=== PATIENT | female | born 1990 | race Caucasian/White ===

== ENCOUNTER 2018-07-19 08:02 | Day surgery (SDC) | payer OTHER ==
[~2018-07-19] VITALS: Ht 203.2 cm; Wt 106.1 kg
[~2018-07-19 08:02] MED LIST: BUPIVACAINE-EPI 0.5%-1:200000 50 ML VIAL. ONE; HYDROmorphone 2 MG/ML VIAL IV PRN; IOHEXOL 300 MG/ML 100ML VIAL. ONE; IV RINGERS,LACTATED 1000ML 1,000 ML IV SCH; LIDOCAINE 1% PF 2 ML VIAL. ID PRN; MORPHINE SULFATE 2 MG/ML VIAL. IV PRN; ONDANSETRON PF 4 MG/2 ML VIAL. IV PRN; PROCHLORPERAZINE 10 MG/2 ML VIAL. IV PRN; SURGICEL HEMOSTAT 4X8 EACH. ONE; fentaNYL PF VIAL 100 MCG/2 ML VIAL IV PRN
[2018-07-19] MEDS ORDERED: ONDANSETRON PF 4 MG/2 ML VIAL. ONE (08:28)
[2018-07-19] MEDS ORDERED: fentaNYL PF VIAL 100 MCG/2 ML VIAL ONE ×3 (08:28→10:42)
[2018-07-19] MEDS ORDERED: MIDAZOLAM HCL/PF 2 MG/2 ML VIAL. ONE (08:28)
[2018-07-19] MEDS ORDERED: PROPOFOL 20 ML IV ONE (08:28)
[2018-07-19] MEDS ORDERED: ROCURONIUM 50 MG/5 ML VIAL. ONE (08:28)
[2018-07-19] MEDS ORDERED: DEXAMETHASONE SOD PHOS 20 MG/5 ML VIAL. ONE (08:28)
[2018-07-19 08:50] LABS: U PREG PATIENT NEGATIVE (NEG)
[2018-07-19 08:51] LABS: BASO % 1 % (0-3); EOS # 0.1 x10^3/uL (0.0-0.7); EOS % 1 % (0-3); HEMATOCRIT 44.3 % (36.0-47.0); LYMPH # 1.3 x10^3/uL (1.0-4.8); LYMPH % 21 % (24-48); MEAN CORPUSCULAR HEMOGLOBIN 30 pg (25-35); MEAN CORPUSCULAR HGB CONC 34 g/dL (31-37); MEAN CORPUSCULAR VOLUME 88 fL (79-100); MONO # 0.5 x10^3/uL (0.0-1.1); MONO % 8 % (0-9); NEUT # 4.2 x10^3uL (1.8-7.7); NEUT % 70 % (31-73); PLATELET COUNT 261 x10^3/uL (140-400); RED BLOOD COUNT 5.03 x10^6/uL (3.50-5.40); RED CELL DISTRIBUTION WIDTH 12.9 % (11.5-14.5); WHITE BLOOD COUNT 6.1 x10^3/uL (4.0-11.0)
[2018-07-19 09:03] LABS: CALCIUM 8.8 mg/dL (8.5-10.1); CREATININE 1.1 mg/dL (0.6-1.0); GFR 58.7; POTASSIUM 3.7 mmol/L (3.5-5.1)
[2018-07-19 09:10] LABS: TOTAL BILIRUBIN 0.6 mg/dL (0.2-1.0)
[2018-07-19] MEDS ORDERED: GLYCOPYRROLATE 1 MG/5 ML VIAL. ONE (09:53)
[2018-07-19] MEDS ORDERED: NEOSTIGMINE METHYLSULFATE 5 MG/5 ML SYRINGE. ONE (09:53)
[2018-07-19] MEDS ORDERED: KETOROLAC 30 MG/ML INJ FOR OR. INJ ONE (09:53)
[2018-07-19] MEDS ORDERED: FAMOTIDINE 20 MG/2 ML VIAL ONE (09:53)
[2018-07-19] MEDS ORDERED: DESFLURANE 61 TO 120 MINUTES IH ONE (09:55)
--- NOTE | 2018-07-19 10:40 | DISCH ---
DISCHARGE INSTRUCTIONS Condition on Discharge Condition on Discharge: Stable Activity After Discharge Activity Instructions for Disc: Resume previous activity, Activity as tolerated Lifting Instructions after Dis: No heavy lifting Driving Instructions after Dis: Do not drive (3-4 days) Diet after Discharge Diet after Discharge: Regular Wound Incision Care Wound/Incision Care: Ice to area for comfort Other wound/incision instructi: March showthursday Follow-Up Follow Up With: Shailesh next week ELZBIETA VARMA MD Jul 19, 2018 10:40
--- NOTE | 2018-07-19 10:50 | RAD ---
C-arm fluoroscopy with fluoroscopic spot views Clinical indications: Cholecystectomy. Intraoperative cholangiogram Total fluoroscopic time: 17 seconds. Total postoperative spot images: 3. IMPRESSION: Fluoroscopic spot images demonstrate opacification of a nondilated extrahepatic biliary tree with free flow of contrast material from the common bile duct into the duodenum. No stricture or stone is evident. Electronically signed by: Will George MD (07/19/2018 10:47 AM) [facility]
--- NOTE | 2018-07-19 10:51 | OP ---
DATE OF SURGERY: 07/19/2018 PREOPERATIVE DIAGNOSIS: Biliary dyskinesia. POSTOPERATIVE DIAGNOSIS: Biliary dyskinesia. PROCEDURE: Laparoscopic cholecystectomy with cholangiogram. SURGEON: Phillip Varma MD. SEROLOGY TEACHER: LEXIS Whitehead. ANESTHESIA: General endotracheal. ESTIMATED BLOOD LOSS: 10. IV FLUIDS: 1 liter. INDICATIONS: The patient is an obese 28-year-old female with postprandial nausea, pain and diarrhea. Brought for cholecystectomy. OPERATIVE FINDINGS: The liver was generous, smooth and sharp. The gallbladder was supple. Cholangiograms were normal. Visual inspection of the remainder of the abdomen failed to reveal obvious abnormalities. DESCRIPTION OF PROCEDURE: The patient was brought to the operating suite, given a general endotracheal anesthetic, and the abdomen prepped and draped in usual sterile fashion. An infraumbilical incision was infiltrated with local anesthetic, incised and a 5 mm Visiport used to safely gain access into the abdominal cavity, taking care to avoid injury to abdominal contents. Pneumoperitoneum established. Camera inserted. Inspection carried out with results as noted above. With the table in reverse Trendelenburg rolled to the left, the epigastric and midclavicular ports were placed under direct vision. The lateral port location was used for an "alligator" grasper. Gallbladder retracted superolaterally and the cystic duct and cystic artery exposed. Duct was clipped on the gallbladder side. Cholangiograms were made. These were normal. In light of this, the catheter was removed. The cystic duct was clipped x 3 and divided, taking care to avoid injury or compromise the common duct. An anterior and posterior branch of the cystic artery were clipped and divided and the gallbladder freed from the bed with cautery dissection and placed in an EndoCatch bag. Good hemostasis was present in the fossa, and there was no evidence of bile leak. Table returned to level. Gallbladder delivered through the epigastric incision. Epigastric incision closed with interrupted 0 Vicryl suture. Intra-abdominal pressure decreased to 6 cm of water. No bleeding from the epigastric closure or from the midclavicular port site after its removal or from the location of the alligator grasper. Abdomen decompressed, camera slowly removed, no bleeding seen. Skin incisions closed with subcuticular 4-0 Monocryl. Steri-Strips and sterile dressings applied. The patient awakened from her anesthetic and taken to the recovery room in satisfactory condition. PHILLIP VARMA MD DR: PAIGE/tasia JOB#: [id number] / [id number]
[2018-07-19] MEDS: fentaNYL PF VIAL 100 MCG/2 ML VIAL IV PRN ×2 (10:54→11:04)
[2018-07-19] MEDS ORDERED: OXYC-323 PO (11:27)
[2018-07-19] MEDS ORDERED: SENN1TAB70 PO (11:29)
[2018-07-19] MEDS ORDERED: oxyCODONE/APAP 5/325 1 TAB TABLET PO ONE (11:30)
[2018-07-19 12:45] VITALS: BP 110/64
--- NOTE | 2018-07-21 11:10 | PATHOLOGY ---
[facility] Accession Number: [id number] . 01 Material submitted: . GALLBLADDER . 01 Clinical history: . Biliary dyskinesia . 02 Diagnosis: Gallbladder, laparoscopic cholecystectomy: - Cholesterolosis. - Chronic cholecystitis. [facility]/07/20/2018 . 02 Comment: There are no calculi identified within the gallbladder lumen or specimen container. There is no evidence of malignancy. . (JPM:mml; 07/20/18) . 02 Electronically signed: . Angel Remy MD, Pathologist NPI- [id number] . 01 Gross description: . The specimen is received in formalin, labeled "Connel, Francesca, gallbladder" and consists of an intact green-irvin and shiny gallbladder measuring 9.2 x 3.5 x 2.4 cm. Upon opening, the gallbladder is filled with viscous green bile and no calculi. The mucosa is pink-green with yellow highlights and a wall thickness average of 0.1 cm. No masses or lesions are identified. [employer]er [employer]er sections are submitted in A1. (SD; 07/19/2018) SYU/SYU . 02 Pathologist provided ICD-10: K81.1, K82.4 . 02 CPT . 327072 Specimen Comment: A courtesy copy of this report has been sent to Specimen Comment: [phone], . Specimen Comment: Report sent to / DR MANLEY Performed at: 01 [facility] [address], [place] [id number] MD Jamison Ross MD Phone: [phone] Performed at: 02 [facility] [address] [place], [place] [id number] MD Angel Rmey MD Phone: [phone]
== END 2018-07-19 12:45 | disposition home or self-care (01) ==
LOC: SURG 08:02
PROVIDERS: ATTEND Surgery
DX: K81.1 Chronic cholecystitis (principal); G43.909 Migraine, unspecified, not intractable, without status migrainosus; E28.2 Polycystic ovarian syndrome; Z98.890 Other specified postprocedural states; Z83.79 Family history of other diseases of the digestive system; Z87.891 Personal history of nicotine dependence; Z79.899 Other long term (current) drug therapy
CPT/HCPCS: 36415; 47563; 74300; 80048; 81025; 82040; 82247; 85025; 88304; A7015; J0690; J1100; J2250; J2405; J2704; J2710; J3010; J3490; J7030; J7120; Q9967; S0028; J1885